=== PATIENT | male | born 1935 | race Caucasian/White ===

== ENCOUNTER 2020-12-28 15:09 | Observation (INO) | payer MEDICARE, OTHER ==
[~2020-12-28] VITALS: Ht 188 cm; Wt 77.0 kg
[~2020-12-28 15:09] MED LIST: AMOXICILLIN 8751 TAB PO; CARDURA 2MG2 MG PO; MOBIC15 MG PO; MYSOLINE 5050 MG/TAB PO; PRAVACHOL 20MG20 MG PO; PRILOSEC 20MG20 MG PO; PROTONIX 40MG T40 MG PO; TOPROL XL50 MG PO
[2021-02-09] VITALS (12 sets, daily range): BP systolic 65–153; BP diastolic 42–68; PULSE 38–59; TEMP 97.6–98.6
[2021-02-09] MEDS ORDERED: LOPRESSOR 225 MG/TAB PO (11:46)
[2021-02-09] MEDS ORDERED: PRINIVIL5 MG PO (11:48)
[2021-02-09] MEDS ORDERED: CELEBREX 1100 MG/CAP PO (11:52)
[2021-02-09] MEDS ORDERED: FLOMAX 0.40.4 MG/CAP PO (11:53)
[2021-02-09] MEDS ORDERED: ZONEGRAN50 MG PO (11:54)
[2021-02-09] MEDS ORDERED: MASON NATURAL1200 MG PO (11:55)
[2021-02-09] MEDS ORDERED: VITAMIN B650 MG PO (11:56)
[2021-02-09] MEDS ORDERED: RESTASIS MULTI5.5 ML OU (11:56)
[2021-02-09] MEDS ORDERED: TYLENOL 500MG500 MG PO (11:57)
[2021-02-09] MEDS ORDERED: ASPIRIN 81M81 MG/TA2 PO (11:57)
[2021-02-09] MEDS ORDERED: SYSTANE 0.4%-0.1 SOL OU (11:58)
[2021-02-09] MEDS ORDERED: PYRIDIUM 100MG100 MG PO (14:59)
--- NOTE | 2021-02-09 17:40 | NUR ---
This nurse was in patients room when patient c/o lightheadedness. Patient appeared diaphoretic and pale. VS monitor showed hypotension and bradycardia. Patient heart rate normally in upper 40s to 50s at baseline. BP significant decrease from previous readings. HOB at 30 degrees at time of lightheadedness, moved into flat position. Dr Hassan notified of above, orders received. Lai catheter continues with CBI at fast rate, urine becoming gradually mesh cutter from bloody with clots upon admission to unit. Lai catheter is to traction per drs order. No c/o at this time.
--- NOTE | 2021-02-09 18:14 | NUR ---
APURVA Lopez here to see patient at 1800.
[2021-02-09 18:32] LABS: HEMATOCRIT 39.6 % (42.0-52.0); HEMOGLOBIN 13.2 g/dl (13.5-18.0)
--- NOTE | 2021-02-09 19:22 | NUR ---
Blood pressure with bolus. CBI continues to infuse at fast rate. No c/o at this time.
--- NOTE | 2021-02-09 20:40 | NUR ---
Pt. laying in bed. Pt. is A&OX3, assessment complete. IV to rt. forearm patent, IV fluids infusing per orders. Three way wild with CBI running moderately fast. Urine is christensen red at this time. Pt. denies pain or other needs, call light within reach.
[2021-02-10 04:05] VITALS: BP 130/51; PULSE 81; TEMP 97.6
--- NOTE | 2021-02-10 07:00 | NUR ---
UPON ENTRY TO ROOM AT SHIFT CHANGE, PATIENT AWAKE IN BED. PATIENT STATES THEY FEEL SOME ABDOMINAL PRESSURE. WONG CATHETER ASSESSED AND URINE OUTPUT CONSISTED OF SEVERAL BLOOD CLOTS AND DARK RED COLOR. PATIENT STATES RELIEF AFTER CLOTS PASSED THROUGH. WONG CATHETER SET TO CBI AND URINE OUTPUT COLOR RETURNED TO LIGHT HOWARD RED. WONG CATHETER EMPTIED AND MEASURED BY NURSE SAHARA AND LAURE LOYOLA. NO OTHER NEEDS AT THIS TIME.
[2021-02-10 07:45] VITALS: BP 119/45; PULSE 60; TEMP 98.6
--- NOTE | 2021-02-10 08:55 | NUR ---
DEMETRIO met with the patient to discuss discharge plan. The patient lives in [place] with his , María (ph#[phone]). He reports independence with ADLs and does not have any DME. The patient's PCP is Dr. Jose Roberto Mahoney and he receives his medications from [facility]. The patient does not have a DPOA-HC in EMR, but he states that he does have one completed and at home. He states that he believes he designated his . The patient plans to return home with his upon discharge. DEMETRIO then contacted and reviewed the above with his , María. María reports no concerns with the patient returning home upon discharge. She states that their son, Keith, will also be staying with them a few days when the patient returns home. No additional needs at this time.
--- NOTE | 2021-02-10 09:12 | NUR ---
Initial visit; Watson thanked [facility] for looking in on him and offering him God's blessings and a good day.
[2021-02-10 11:44] VITALS: BP 140/62; PULSE 65; TEMP 98.3
[2021-02-10 15:33] VITALS: BP 135/60; PULSE 64; TEMP 98.4
[2021-02-10 20:06] VITALS: BP 128/51; PULSE 71; TEMP 98.3
--- NOTE | 2021-02-10 20:40 | NUR ---
Pt. sitting up in bed. Pt. is A&OX3, assessment complete. INT to rt. forearm patent. Pt. denies pain. Lai catheter with CBI, urine is pink at this time. Pt. denies further needs.
[2021-02-11] VITALS: BP 125/56; PULSE 64; TEMP 98.2
[2021-02-11 03:50] VITALS: BP 124/58; PULSE 60; TEMP 98.3
[2021-02-11 06:39] LABS: BASO % 0.6 % (0.0-2.0); EOS # 0.2 (0.0-0.7); EOS % 3.3 % (0-4.0); GRAN # 3.6 (1.4-6.5); GRAN % 69.6 % (42.2-75.2); HEMOGLOBIN 12.3 g/dl (13.5-18.0); LYMPH # 0.6 (1.2-3.4); LYMPH % 11.6 % (20.0-51.0); MEAN CELL VOLUME 104 fl (80.0-100.0); MEAN CORPUSCULAR HEMOGLOBIN 36 pg (27.0-31.0); MEAN CORPUSCULAR HGB CONC 34 g/dl (33.0-37.0); MEAN PLATELET VOLUME 10.4 fl (7.4-10.4); MONO # 0.8 (0.1-0.6); MONO % 14.7 % (1.7-9.3); PLATELET COUNT 149 K/mm3 (130-400); RED BLOOD COUNT 3.46 M/mm3 (4.20-5.60); REDCELL DISTRIBUTION WIDTH-CV 12.9 % (11.5-14.5)
[2021-02-11 06:46] LABS: HEMATOCRIT 36.1 % (42.0-52.0)
[2021-02-11 06:51] LABS: CALCIUM 8.7 mg/dL (8.4-10.2); CREATININE, serum 0.77 (0.66-1.25)
[2021-02-11 08:04] VITALS: BP 137/58; PULSE 68; TEMP 98.7
--- NOTE | 2021-02-11 10:33 | NUR ---
STARTED 6 BTTL ROUTINE AFTER PRIME AND PULLING WONG CATHETER. REMOVED 800 MLS PINK URINE FROM WONG BAG. PT HAS COMPLETED THE FIRST CUP OF 6. PT TOLERATED ALL PROCEEDURES. VSS, AM ASSESSMENTS COMPLETE.
[2021-02-11 11:21] VITALS: BP 149/65; PULSE 63; TEMP 98.3
[2021-02-11 15:01] VITALS: BP 167/68; PULSE 59; TEMP 97.9
--- NOTE | 2021-02-11 15:52 | NUR ---
DISCHARGE INSTRUCTIONS REVIEWED WITH PT AND SON. QUESTIONS SOLICITED AND ANSWERED. PT HAS MET CRITERIA FOR DISCHARGE POST TURP. PT LEFT PER WHEEL CHAIR AND POV.
== END 2021-02-11 15:54 | disposition home or self-care (01) ==
LOC: SURG 02-09 10:55
PROVIDERS: Hospitalist; Student in an Organized Health Care Education/Training Program; ADMIT Urology
DX: N40.1 Benign prostatic hyperplasia with lower urinary tract symptoms (principal); C67.9 Malignant neoplasm of bladder, unspecified; R39.12 Poor urinary stream; R39.14 Feeling of incomplete bladder emptying; R35.1 Nocturia; R00.1 Bradycardia, unspecified; I95.81 Postprocedural hypotension; R42 Dizziness and giddiness; I10 Essential (primary) hypertension; I44.7 Left bundle-branch block, unspecified; I25.10 Atherosclerotic heart disease of native coronary artery without angina pectoris; E78.5 Hyperlipidemia, unspecified; K21.9 Gastro-esophageal reflux disease without esophagitis; M19.90 Unspecified osteoarthritis, unspecified site; G89.29 Other chronic pain; G62.9 Polyneuropathy, unspecified; Z79.82 Long term (current) use of aspirin; Z79.899 Other long term (current) drug therapy; Z20.822 Contact with and (suspected) exposure to COVID-19
CPT/HCPCS: 99232-AI; G0378; J0690; J2270; J2405; J2704; J3010; J3480; J7030; J7120